=== PATIENT | female | born 1965 | race Caucasian/White ===

== ENCOUNTER 2020-06-17 08:12 | Emergency (ER) | payer OTHER, SELFPAY ==
[2020-06-17 08:35] VITALS: BP 141/85; PULSE 92; RESP 16; TEMP 36.8; O2SAT 99
--- NOTE | 2020-06-17 08:47 | ED.GENADULT ---
HPI - General Adult General Chief complaint: Skin/Abscess/Foreign Body Stated complaint: RASH Time Seen by Provider: 06/17/20 08:47 Source: patient and RN notes reviewed Mode of arrival: ambulatory Limitations: no limitations History of Present Illness HPI narrative: 54-year-old female presents with complaints of diffused red, raised, itching, burning, rash to body for the past 5 days. Christa says she was out doing yard 4-5 days prior to the start of rash. Benadryl at bedtime, topical Benadryl, and Calamine lotion without relief. Awaken this morning with RT eye swelling. Denies new detergent, personal hygiene products, or laundry detergent. No new foods or medications. No swelling, bleeding, or drainage. Denies fever or chills, headaches, weakness, fatigue, malagia, or tongue swelling. Denies eye redness or drainage. Denies blurred vision, double vision, or pain of eye with movement. Wears contact lenses. Denies chest pain or dyspnea. The patient reports she have not been diagnosed with COVID-19. The patient reports she is not waiting for the results of a COVID-19 lab test. The patient reports she do not have fever, chills, weakness, fatigue, myalgia, or facial swelling. The patient reports she do not have a new or worsening cough or shortness of breath. Denies chest pain. The patient reports she do not have any rhinorrhea, congestion, sore throat, loss of taste, nausea, vomiting, abdominal pain, and diarrhea. Tolerating po intake well. Denies recent traveling. Denies concerns for COVID-19 or exposures been home with limited outdoor exposure except for essential household needs, work, and return home. At this time, patient is not suspected of having COVID-19. Some parts of this dictation were generated by voice recognition software and may contain typographical and/or grammatical inaccuracies. Related Data Home Medications Medication Instructions Recorded Confirmed lisinopril-hydrochlorothiazide 1 tablet PO DAILY 06/17/20 06/17/20 [Zestoretic] semaglutide [Ozempic] 1 mg SUBCUT WEEKLY 06/17/20 06/17/20 Allergies Allergy/AdvReac Type Severity Reaction Status Date / Time No Known Allergies Allergy Unknown Verified 06/17/20 08:45 Review of Systems Review of Systems: Narrative: CONSTITUTIONAL: Denies fever, chills, sweats. EYES: Denies visual changes, redness, discharge. Complains of RT eye swelling. ENT: Denies rhinorrhea, congestion, sore throat, otalgia. CARDIOVASCULAR: Denies chest pain, palpitations, edema. RESPIRATORY: Denies dyspnea, wheezing, cough. GASTROINTESTINAL: Denies abdominal pain, nausea, vomiting, diarrhea. GENITOURINARY: Denies dysuria, hematuria, abnormal discharge. SKIN: Complains of diffused red, burning, and itching rash to body. Denies drainage. MUSCULOSKELETAL: Denies acute back pain, joint pain, or myalgia. NEUROLOGIC: Denies numbness or focal weakness. PSYCHIATRIC: Denies anxiety or depression. All other systems reviewed are negative, except as documented in HPI and below. [facility] Past Medical History Medical History (Updated 06/17/20 @ 09:09 by CHAYA Steel) Diabetes Hypertension Surgical History Surgical History (Updated 06/17/20 @ 09:07 by CHAYA Steel) History of cholecystectomy Hx of appendectomy Family History Family History (Updated 06/17/20 @ 09:07 by CHAYA Steel) Father Heart disease Diabetes mellitus Mother Diabetes mellitus Hypertension Social History Social History (Updated 06/17/20 @ 09:08 by CHAYA Steel) Smoking status: Never smoker Tobacco type: cigarettes Second hand tobacco smoke exposure: No Alcohol intake: current Substance use: never Living arrangements: with family Occupation/Education: occupation Gender identity (if verbalized by the patient): Female Exam Narrative: Exam Narrative: GENERAL: This is a well-nourished, well-developed patient, in no apparent dist
[2020-06-17] MEDS: methylPREDNISolone SOD SUCC 125 MG VIAL IM (09:00)
[2020-06-17] MEDS: IBUPROFEN 400 MG TABLET 800 MG PO (09:32)
== END 2020-06-17 10:05 | disposition home or self-care (01) ==
PROVIDERS: Emergency Provider Nurse Practitioner Family; PCP Internal Medicine
DX: L23.7 Allergic contact dermatitis due to plants, except food (principal); I10 Essential (primary) hypertension; E11.9 Type 2 diabetes mellitus without complications; Z79.84 Long term (current) use of oral hypoglycemic drugs
CPT/HCPCS: 96372; 99213; A9270; G0463; J2930

== ENCOUNTER 2020-08-05 07:39 | Outpatient (CLI) | payer OTHER, SELFPAY ==
--- NOTE | ~2020-08-05 | MM_ITS ---
EXAMINATION: MM screening [facility] BI w marek HISTORY: Screening mammogram, family history of breast cancer in her mother. TECHNIQUE: Craniocaudal and mediolateral oblique 3-D tomosynthesis images were obtained and synthetic 2-D images were generated. CAD analysis was submitted and interpreted. COMPARISON: 05/26/2019, 03/14/2018, 02/04/2016 BREAST PARENCHYMAL COMPOSITION: There are scattered areas of fibroglandular density. FINDINGS: There are stable changes of excisional biopsy in the breasts. There is no evidence of suspi cious mass, calcification, or architectural distortion to suggest malignancy in either breast. There has been no suspicious interval change. IMPRESSION: 1. No mammographic evidence of malignancy. 2. Recommend routine screening mammography in one year. BI-RADS Category 2: Benign finding(s). Reviewed, dictated and finalized at location A. [employer]
== END 2020-08-05 07:40 | disposition home or self-care (01) ==
LOC: ANHIMG 07:42
PROVIDERS: PCP Internal Medicine; Visit Provider Obstetrics & Gynecology
DX: Z12.31 Encounter for screening mammogram for malignant neoplasm of breast (principal)
CPT/HCPCS: 77063; 77067

== ENCOUNTER 2023-06-10 07:10 | Outpatient (CLI) | payer BC, OTHER, SELFPAY ==
--- NOTE | ~2023-06-10 | MM_ITS ---
EXAMINATION: MM screening [facility] BI w marek HISTORY: Screening mammogram TECHNIQUE: Craniocaudal and mediolateral oblique 3-D tomosynthesis images were obtained and synthetic 2-D images were generated. CAD analysis was submitted and interpreted. COMPARISON: 08/05/2020, 05/26/2019, 03/14/2018 bilateral screening mammogram examinations BREAST PARENCHYMAL COMPOSITION: There are scattered areas of fibroglandular density. FINDINGS: Occasional bilateral benign calcifications. There is no evidence of suspicious mass, calcif ication, or architectural distortion to suggest malignancy in either breast. There has been no suspic ious interval change. IMPRESSION: 1. No mammographic evidence of malignancy. 2. Recommend routine screening mammography in one year. BI-RADS Category 1: Negative Reviewed, dictated and finalized at location A.
== END 2023-06-10 07:11 | disposition home or self-care (01) ==
LOC: ANHIMG 07:11
PROVIDERS: PCP Internal Medicine; Visit Provider Student in an Organized Health Care Education/Training Program
DX: Z12.31 Encounter for screening mammogram for malignant neoplasm of breast (principal)
CPT/HCPCS: 77063; 77067

== ENCOUNTER 2023-06-27 10:14 | Emergency (ER) | payer BC, OTHER, SELFPAY ==
[2023-06-27 10:23] VITALS: BP 138/84; PULSE 73; RESP 16; TEMP 36.6; O2SAT 99
--- NOTE | 2023-06-27 10:31 | ED.SKABFB ---
HPI - Skin/Abscess/Foreign Bdy General Chief complaint: Skin/Abscess/Foreign Body Stated complaint: Poison Ariana Time Seen by Provider: 06/27/23 10:32 Source: patient, RN notes reviewed and old records reviewed Mode of arrival: ambulatory Limitations: no limitations History of Present Illness HPI narrative: 58 year old female who presents to [facility] care with complaints of exposure to poison ariana with rash appearing 4-5 days ago with it spreading. Patient reports that she was working in [employer] yard and she must of come in contact with some poison plant there. Patient has red scattered rash mainly to her arms, some to her legs, and some on her neck and has been taking Benadryl for the itching and has used IvyDry and also Calamine lotion to her rash. Patient does not have any rash noted to trunk. Patient denies any shortness of breath or any difficulty with swallowing. MD complaint: rash Onset (ago): day(s) (4 days) Severity: moderate Quality: pruritic Treatments prior to arrival: Benadryl and other (Calmine lotion and Ariana Rest) Related Data Home Medications Medication Instructions Recorded Confirmed glimepiride 1 mg tablet 1 mg PO QAM 11/16/22 06/27/23 lisinopril 20 2 tablet PO DAILY 11/16/22 06/27/23 mg-hydrochlorothiazide 12.5 mg tablet (Zestoretic) clobetasol 0.05 % topical cream 1 g topical BID 04/02/23 06/27/23 tirzepatide 7.5 mg/0.5 mL 7.5 mg subcut WEEKLY 04/02/23 06/27/23 subcutaneous pen injector (Jayden) Allergies Allergy/AdvReac Type Severity Reaction Status Date / Time No Known Allergies Allergy Unknown Verified 06/27/23 10:23 Review of Systems Review of Systems: CONSTITUTIONAL: Denies fever, chills, or sweats. CARDIOVASCULAR: Denies chest pain, palpitations, or edema. RESPIRATORY: Denies cough or dyspnea. SKIN: Reports itchy rash to her arms, legs and some to her neck for 4 days MUSCULOSKELETAL: Denies joint pain or myalgia. NEUROLOGIC: Denies headache, numbness, or weakness. All systems reviewed & are unremarkable except as noted in HPI and below PMFSH Past Medical History Medical History Diabetes type 2 Hypertension Lichen sclerosus of vulva (07/25/19) Screening for breast cancer Surgical History Surgical History H/O breast biopsy xs 2 bilateral H/O gynecological procedure Mirena IUD insertion 2009 removal 2019 History of cholecystectomy History of gynecological procedure (07/25/19) right vulvar biopsy , Lichen sclerosus Hx of appendectomy Family History Family History Father Heart disease Diabetes mellitus Mother Diabetes mellitus Hypertension Breast cancer Social History Social History Smoking status: Never smoker Tobacco type: cigarettes Second hand tobacco smoke exposure: No Alcohol intake: never Substance use: never Substance use type: does not use Lack of Transportation: No Lack of Food: Never True Current Housing: I Have Housing Concerned About Future Housing: No Difficulty Paying Gas/Electric Bills: No Difficulty Paying for Meds: No Currently Unemployed: No Education: High School Diploma/GED Difficulty w/ Childcare or Family Care: No Living arrangements: with family Additional living arrangements comments: Occupation/Education: occupation 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 There is no relevant family history pertinent to the presenting complaint Exam Narrative: GENERAL: Well-appearing, well-nourished, and in no acute distre
== END 2023-06-27 10:54 | disposition home or self-care (01) ==
PROVIDERS: Emergency Provider Registered Nurse; PCP Internal Medicine
DX: L23.7 Allergic contact dermatitis due to plants, except food (principal); E11.9 Type 2 diabetes mellitus without complications; I10 Essential (primary) hypertension
CPT/HCPCS: 99213; G0463

== ENCOUNTER 2024-02-06 10:17 | Emergency (ER) | payer OTHER, SELFPAY ==
--- NOTE | ~2024-02-06 | XR_ITS ---
XR chest 2V DATE: 02/06/2024 10:49 INDICATION: Cough TECHNIQUE: PA and lateral views COMPARISON: January 17, 2007 two-view chest, reported normal FINDINGS: Normal heart size. No hilar or mediastinal enlargement. No pulmonary infiltrate or consolid ation, pleural effusion or pulmonary vascular congestion or pneumothorax is detected. Osteopenia. Surgical clips, right upper quadrant, consistent with cholecystectomy. IMPRESSION: No active cardiopulmonary disease Status post cholecystectomy Reviewed, dictated and finalized at location A.
[2024-02-06 10:30] VITALS: BP 151/85; PULSE 110; RESP 16; TEMP 36.1; O2SAT 100
--- NOTE | 2024-02-06 10:49 | ED.GENADULT ---
HPI - General Adult General Chief complaint: Upper Respiratory Infection Stated complaint: pneumonia like symptoms Source: patient Mode of arrival: ambulatory Limitations: no limitations History of Present Illness HPI narrative: Patient presents for evaluation of cough for the last 3 weeks. Cough is productive of clear sputum. She reports difficulty taking a deep breath, but denies shortness of breath per se. She does have some wheezing present. She had fever two days ago but none since that time. No nausea, vomiting, diarrhea, sore throat, otalgia. 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 She went through a drive-through for a flu and COVID swab couple days ago and swabs were negative. She had a virtual appointment with her primary care provider 2 days ago was given cefdinir and steroids. She has also been taking some [id number] cough medication. Her symptoms persist despite medications. She does not smoke. Her also has similar symptoms. She indicates she is supposed to schedule a cardiac catheterization in the near future. Her mother has atrial fibrillation. She has chronic swelling in her lower legs. She is not on exogenous estrogen. She is not aware of any family history of DVT or PE. Her father has 11 cardiac stents and brother at the age of 48 from an acute coronary event. Related Data Home Medications Medication Instructions Recorded Confirmed glimepiride 1 mg tablet 1 mg PO QAM 11/16/22 02/06/24 lisinopril 20 2 tablet PO DAILY 11/16/22 02/06/24 mg-hydrochlorothiazide 12.5 mg tablet (Zestoretic) clobetasol 0.05 % topical cream 1 g topical BID 04/02/23 02/06/24 tirzepatide 7.5 mg/0.5 mL 7.5 mg subcut WEEKLY 04/02/23 02/06/24 subcutaneous pen injector (Mounjaro) flash glucose sensor (FreeStyle 02/06/24 02/06/24 Luci 2 Sensor kit) lisinopril 20 41 tablet PO DAILY 02/06/24 02/06/24 mg-hydrochlorothiazide 12.5 mg tablet pravastatin 20 mg tablet 20 mg PO DAILY 02/06/24 02/06/24 Allergies Allergy/AdvReac Type Severity Reaction Status Date / Time No Known Allergies Allergy Unknown Verified 02/06/24 10:22 Review of Systems Review of Systems: CONSTITUTIONAL: Denies fever, chills, or sweats. EYES: Denies visual changes, redness, or discharge. ENT: Denies rhinorrhea, congestion, sore throat, or otalgia. CARDIOVASCULAR: Denies chest pain, palpitations, or edema. RESPIRATORY: Reports cough. Reports difficulty taking a deep breath. Denies shortness of breath. GASTROINTESTINAL: Denies abdominal pain, nausea, vomiting, or diarrhea. GENITOURINARY: Denies dysuria or hematuria. SKIN: Denies rash or itching. MUSCULOSKELETAL: Denies back pain, joint pain, or myalgia. NEUROLOGIC: Denies headache, numbness, dizziness, or weakness. PSYCHIATRIC: Denies anxiety or depression. [facility] Past Medical History Medical History Diabetes type 2 Hypertension Lichen sclerosus of vulva (07/25/19) Screening for breast cancer Surgical History Surgical History H/O breast biopsy xs 2 bilateral H/O gynecological procedure Mirena IUD insertion 2009 removal 2019 History of cholecystectomy History of gynecological procedure (07/25/19) right vulvar biopsy , Lichen sclerosus Hx of appendectomy Family History Family History Father Heart disease Diabetes mellitus Mother Diabetes mellitus Hypertension Breast cancer Social History Social History Smoking status: Never smoker Tobacco type: cigarettes Second hand tobacco smoke exposure: No Alcohol intake: never Substance use: never Substance use type: does not use Lack of Transportation: No Lack of Food: Never True Current Housing: I Have Housing C
--- NOTE | 2024-02-06 12:27 | ED.GENADULT ---
HPI - General Adult General Chief complaint: Upper Respiratory Infection Stated complaint: pneumonia like symptoms Source: patient Mode of arrival: ambulatory Limitations: no limitations History of Present Illness HPI narrative: Patient presents for evaluation of sore throat. Symptom onset this morning. She indicates she felt that her throat was dry last night. Two days ago she was exposed to someone who had strep while she was working. She has a history of strep pharyngitis in this feels similar. No fever, chills, nausea, vomiting, cough. She quit smoking about one month ago. She is not taking any medications for her symptoms. Related Data Home Medications Medication Instructions Recorded Confirmed glimepiride 1 mg tablet 1 mg PO QAM 11/16/22 02/06/24 lisinopril 20 2 tablet PO DAILY 11/16/22 02/06/24 mg-hydrochlorothiazide 12.5 mg tablet (Zestoretic) clobetasol 0.05 % topical cream 1 g topical BID 04/02/23 02/06/24 tirzepatide 7.5 mg/0.5 mL 7.5 mg subcut WEEKLY 04/02/23 02/06/24 subcutaneous pen injector (Lukasunjaro) flash glucose sensor (FreeStyle 02/06/24 02/06/24 Luci 2 Sensor kit) lisinopril 20 41 tablet PO DAILY 02/06/24 02/06/24 mg-hydrochlorothiazide 12.5 mg tablet pravastatin 20 mg tablet 20 mg PO DAILY 02/06/24 02/06/24 Allergies Allergy/AdvReac Type Severity Reaction Status Date / Time No Known Allergies Allergy Unknown Verified 02/06/24 10:22 Review of Systems Review of Systems: CONSTITUTIONAL: Denies fever, chills, or sweats. EYES: Denies visual changes, redness, or discharge. ENT: Reports sore throat. Denies rhinorrhea, congestion, or otalgia. CARDIOVASCULAR: Denies chest pain, palpitations, or edema. RESPIRATORY: Denies cough or dyspnea. GASTROINTESTINAL: Denies abdominal pain, nausea, vomiting, or diarrhea. GENITOURINARY: Denies dysuria or hematuria. SKIN: Denies rash or itching. MUSCULOSKELETAL: Denies back pain, joint pain, or myalgia. NEUROLOGIC: Denies headache, numbness, dizziness, or weakness. PSYCHIATRIC: Denies anxiety or depression. [facility] Past Medical History Medical History Diabetes type 2 Hypertension Lichen sclerosus of vulva (07/25/19) Screening for breast cancer Surgical History Surgical History H/O breast biopsy xs 2 bilateral H/O gynecological procedure Mirena IUD insertion 2009 removal 2019 History of cholecystectomy History of gynecological procedure (07/25/19) right vulvar biopsy , Lichen sclerosus Hx of appendectomy Family History Family History Father Heart disease Diabetes mellitus Mother Diabetes mellitus Hypertension Breast cancer Social History Social History Smoking status: Never smoker Tobacco type: cigarettes Second hand tobacco smoke exposure: No Alcohol intake: never Substance use: never Substance use type: does not use Lack of Transportation: No Lack of Food: Never True Current Housing: I Have Housing Concerned About Future Housing: No Difficulty Paying Gas/Electric Bills: No Difficulty Paying for Meds: No Currently Unemployed: No Education: High School Diploma/GED Difficulty w/ Childcare or Family Care: No Living arrangements: with family Additional living arrangements comments: Occupation/Education: occupation 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
== END 2024-02-06 11:35 | disposition short-term general hospital (02) ==
PROVIDERS: Emergency Provider Nurse Practitioner; PCP Internal Medicine
DX: R00.0 Tachycardia, unspecified (principal); R05.9 Cough, unspecified; E11.9 Type 2 diabetes mellitus without complications; I10 Essential (primary) hypertension
CPT/HCPCS: 71046; 99213; G0463

== ENCOUNTER 2024-03-06 00:46 | Day surgery (SDC) | payer OTHER, SELFPAY ==
[2024-02-18 11:19] VITALS: BMI 35.0
[2024-03-06 09:10] VITALS: BP 152/87; PULSE 105; RESP 18; TEMP 36.3; O2SAT 98; BMI 34.4
[2024-03-06] MEDS: LACTATED RINGERS 1,000 ML 150 ML IV CONT (09:36)
[2024-03-06 09:37] LABS: Glucose Point of Care 203 mg/dl (65-105)
--- NOTE | 2024-03-06 09:42 | WPDANESEPPF ---
Anes - Initial Pre Proc Eval Procedure: Operation Date: 03/06/24 10:30 Proposed Procedures p Screening Colonoscopy - Zelalem Mac MD Date/Time: 03/06/24 09:42 Surgeon: Zelalem Mac MD Pre Op Diagnosis: neoplasm screening Patient Data Age: 58 Gender: F Height: 1.57 m Weight: 85.6 kg Last Vital Signs Temp 97.3 F L 03/06/24 09:10 Pulse 105 H 03/06/24 09:10 Resp 18 03/06/24 09:10 BP 152/87 H 03/06/24 09:10 Pulse Ox 98 03/06/24 09:10 O2 Del Method Room Air 03/06/24 09:10 Allergies Allergy/AdvReac Type Severity Reaction Status Date / Time No Known Allergies Allergy Unknown Verified 03/06/24 09:16 Home Medications Medication Instructions Recorded Confirmed Type lisinopril 20 2 tablet PO DAILY 11/16/22 03/06/24 History mg-hydrochlorothiazide 12.5 mg tablet (Zestoretic) clobetasol 0.05 % topical cream 1 g topical BID 04/02/23 03/06/24 History tirzepatide 7.5 mg/0.5 mL 7.5 mg subcut WEEKLY 04/02/23 03/06/24 History subcutaneous pen injector (Mounjaro) flash glucose sensor (FreeStyle 02/06/24 02/06/24 History Luci 2 Sensor kit) pravastatin 20 mg tablet 20 mg PO DAILY 02/06/24 03/06/24 History Zyrtec 1 tab-cap PO DAILY 02/18/24 03/06/24 History glimepiride 2 mg tablet 2 mg PO DAILY 02/18/24 03/06/24 History omeprazole 1 tab-cap PO DAILY 02/18/24 03/06/24 History Laboratory Tests 03/06/24 09:25 POC Capillary Glucose 203 H mg/dl (65-105) Patient hx anesthesia problems: none Family hx anesthesia problems: none Results Review: All pre-operative results and documents have been reviewed as part of the pre-operative evaluation. [facility] Past Medical History Medical History Diabetes type 2 Hypertension Lichen sclerosus of vulva (07/25/19) Screening for breast cancer Surgical History Surgical History H/O breast biopsy xs 2 bilateral H/O gynecological procedure Mirena IUD insertion 2009 removal 2019 History of cholecystectomy History of gynecological procedure (07/25/19) right vulvar biopsy , Lichen sclerosus Hx of appendectomy Family History Family History Father Heart disease Diabetes mellitus Mother Diabetes mellitus Hypertension Breast cancer Social History Social History Smoking status: Never smoker Tobacco type: cigarettes Second hand tobacco smoke exposure: No Alcohol intake: never Substance use: never Substance use type: does not use Lack of Transportation: No Lack of Food: Never True Current Housing: I Have Housing Concerned About Future Housing: No Difficulty Paying Gas/Electric Bills: No Difficulty Paying for Meds: No Currently Unemployed: No Education: High School Diploma/GED Difficulty w/ Childcare or Family Care: No Living arrangements: with family Additional living arrangements comments: Occupation/Education: occupation 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 Gender identity (if verbalized by the patient): Female Sexual Orientation (if Verbalized by the Patient): Straight or Heterosexual Spiritual care concerns: No Anes - Eval Final PreProcedure Day of Procedure 03/06/24 09:42 Patient weight: obese Heart: regular rate and rhythm Lungs: clear to auscultation Airway: Mallampati scale class II Neurological: alert and oriented Last oral intake: >/= 8 hours ASA classification: III Emergent: no Anesthetic plan: proceed Anesthesia type and monitoring: general GIVS and standard monitoring Results Review: All pre-operative results and documents have been reviewed as part of the pre-operative evaluation. Informed Consent: The patient's anesthetic plan and its attendant r
--- NOTE | 2024-03-06 10:10 | PM.HPGS ---
History of Present Illness History of Present Illness Consent: Risks, benefits, and alternatives have been discussed and questions answered. Patient agrees to proceed with procedure. Chief complaint: neoplasm screening Narrative: Christa Vargas is a 58 year old female here for first screening colonoscopy Review of Systems Review of Systems: All systems reviewed & are unremarkable except as noted in HPI and below PMFSH Past Medical History Medical History (Updated 03/06/24 @ 10:12 by Zelalem Mac MD) Colon cancer screening Diabetes type 2 Hypertension Lichen sclerosus of vulva (07/25/19) Screening for breast cancer Surgical History Surgical History H/O breast biopsy xs 2 bilateral H/O gynecological procedure Mirena IUD insertion 2009 removal 2019 History of cholecystectomy History of gynecological procedure (07/25/19) right vulvar biopsy , Lichen sclerosus Hx of appendectomy Family History Family History Father Heart disease Diabetes mellitus Mother Diabetes mellitus Hypertension Breast cancer Social History Social History Smoking status: Never smoker Tobacco type: cigarettes Second hand tobacco smoke exposure: No Alcohol intake: never Substance use: never Substance use type: does not use Lack of Transportation: No Lack of Food: Never True Current Housing: I Have Housing Concerned About Future Housing: No Difficulty Paying Gas/Electric Bills: No Difficulty Paying for Meds: No Currently Unemployed: No Education: High School Diploma/GED Difficulty w/ Childcare or Family Care: No Living arrangements: with family Additional living arrangements comments: Occupation/Education: occupation 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 Gender identity (if verbalized by the patient): Female Sexual Orientation (if Verbalized by the Patient): Straight or Heterosexual Spiritual care concerns: No Meds Home Medications and Allergies Home Medications Medication Instructions Recorded Confirmed Type lisinopril 20 2 tablet PO DAILY 11/16/22 03/06/24 History mg-hydrochlorothiazide 12.5 mg tablet (Zestoretic) clobetasol 0.05 % topical cream 1 g topical BID 04/02/23 03/06/24 History tirzepatide 7.5 mg/0.5 mL 7.5 mg subcut WEEKLY 04/02/23 03/06/24 History subcutaneous pen injector (Mounjaro) flash glucose sensor (FreeStyle 02/06/24 02/06/24 History Luci 2 Sensor kit) pravastatin 20 mg tablet 20 mg PO DAILY 02/06/24 03/06/24 History Zyrtec 1 tab-cap PO DAILY 02/18/24 03/06/24 History glimepiride 2 mg tablet 2 mg PO DAILY 02/18/24 03/06/24 History omeprazole 1 tab-cap PO DAILY 02/18/24 03/06/24 History Allergies Allergy/AdvReac Type Severity Reaction Status Date / Time No Known Allergies Allergy Unknown Verified 03/06/24 09:16 Vital Signs Vital Signs - 24 hr 03/06/24 09:10 Temperature 97.3 F L Pulse Rate 105 H Respiratory Rate 18 Blood Pressure 152/87 H Pulse Oximetry 98 Oxygen Delivery Room Air Exam Const: General: comfortable and no acute distress HENMT: Face/Nose/Sinus: Normal nares present Eyes: General: appearance normal, both eyes and all related structures Neck: Neck: no JVD Resp: Auscultation: clear to auscultation bilaterally Cardio: Rate: regular rate Rhythm: regular rhythm GI: Inspection: non-distended GI Palp: Yes Soft to palpation Skin: General skin exam: normal color Neuro: General: gait normal Speech: normal speech Extrem: General: normal to inspection Psych: Mental Status: mental status grossly normal Assessment and Plan Assessment and plan (1) Colon cancer screening: Code(s): Z12.11 - Encounter for screening for malignant neoplasm of colon Status: Acute
[2024-03-06 10:30] VITALS: BP 96/63; PULSE 79; RESP 17; O2SAT 96
[2024-03-06 10:40] VITALS: BP 104/66; PULSE 79; RESP 17; O2SAT 96
[2024-03-06 10:50] VITALS: BP 118/74; PULSE 71; RESP 19; O2SAT 99
== END 2024-03-06 11:00 | disposition home or self-care (01) ==
PROVIDERS: PCP Internal Medicine; Visit Provider Internal Medicine Gastroenterology
PROC: 0DJD8ZZ Inspection of Lower Intestinal Tract, Via Natural or Artificial Opening Endoscopic (ICD-10-PCS; CPT 45378; principal; 2024-03-06 10:30)
DX: Z12.11 Encounter for screening for malignant neoplasm of colon (principal); D12.4 Benign neoplasm of descending colon; E11.9 Type 2 diabetes mellitus without complications; I10 Essential (primary) hypertension; E66.9 Obesity, unspecified; Z68.34 Body mass index [BMI] 34.0-34.9, adult; Z79.85 Long-term (current) use of injectable non-insulin antidiabetic drugs; Z79.84 Long term (current) use of oral hypoglycemic drugs
CPT/HCPCS: 45385; 82948; 88305; J2704; J7120